=== PATIENT | female | born 1965 | race Caucasian/White ===

== ENCOUNTER 2025-02-02 13:36 | Emergency (ER) | payer MEDICAID ==
[~2025-02-02] VITALS: Ht 172.7 cm; Wt 98.1 kg
[2025-02-02 15:04] VITALS: BP 178/91
== END 2025-02-02 15:05 | disposition home or self-care (01) ==
LOC: ED 13:36
DX: J06.9 Acute upper respiratory infection, unspecified (principal); Z88.2 Allergy status to sulfonamides
CPT/HCPCS: 99283

== ENCOUNTER 2025-02-24 13:57 | Emergency (ER) | payer MEDICAID ==
[~2025-02-24] VITALS: Ht 170.2 cm; Wt 100.0 kg
--- OUTSIDE RECORDS SUMMARY | 2025-02-24 14:03 | XMS ---
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 Trevon has no Care Guidelines for this patient. Yasmine VISIT COUNT (12 MO.) 2 [facility] [place] TOTAL 2 NOTE: Visits indicate total known visits. [place] [place] (12 MO.) 02/24/2025 13:[address] [facility] [address] [place] TYPE: Emergency COMPLAINT: - FATIGUE 02/02/2025 13:37 [facility] [place] TYPE: Emergency COMPLAINT: - COLD SYMPTOMS DIAGNOSES: - Acute upper respiratory infection, unspecified - Allergy status to sulfonamides INPATIENT VISIT TRACKING (12 MO.) No inpatient visits to display in this time frame [email or web address]
[2025-02-24] MEDS ORDERED: TRAZODONE HCL50 MG PO ×2 (14:15→15:55)
[2025-02-24] MEDS ORDERED: LIPITOR40 MG PO ×2 (14:16→15:55)
[2025-02-24] MEDS ORDERED: COREG3.125 MG PO (14:16)
[2025-02-24] MEDS ORDERED: OMEPRAZOLE20 MG PO ×2 (14:17→15:55)
[2025-02-24] MEDS ORDERED: FUROSEMIDE20 MG PO (14:17)
[2025-02-24] MEDS ORDERED: COZAAR50 MG PO ×2 (14:17→15:55)
[2025-02-24] MEDS ORDERED: SUBOXONE 8 MG-1 EAC1 SL (15:55)
[2025-02-24] MEDS ORDERED: CARVEDILOL3.125 MG PO (15:55)
[2025-02-24] MEDS ORDERED: POTASSIUM CHLO20 ME2 PO (15:55)
[2025-02-24] MEDS ORDERED: LASIX20 MG PO (15:55)
[2025-02-24 16:00] VITALS: BP 161/68
== END 2025-02-24 16:00 | disposition home or self-care (01) ==
LOC: ED 13:57
DX: G89.29 Other chronic pain (principal); Z76.0 Encounter for issue of repeat prescription; E10.9 Type 1 diabetes mellitus without complications; I10 Essential (primary) hypertension; E78.5 Hyperlipidemia, unspecified; Z79.899 Other long term (current) drug therapy; Z88.2 Allergy status to sulfonamides
CPT/HCPCS: 99281

== ENCOUNTER 2025-07-06 08:27 | Emergency (ER) | payer OTHER ==
[~2025-07-06] VITALS: Ht 170.2 cm; Wt 115.3 kg
[~2025-07-06 08:27] MED LIST: CARVEDILOL3.125 MG PO; COREG3.125 MG PO; COZAAR50 MG PO; FUROSEMIDE20 MG PO; LASIX20 MG PO; LIPITOR40 MG PO; OMEPRAZOLE20 MG PO; POTASSIUM CHLO20 ME2 PO; SUBOXONE 8 MG-1 EAC1 SL; TRAZODONE HCL50 MG PO
[2025-07-06] MEDS ORDERED: ALBUTEROL/IPRATROPIUM 3 ML NEB INH ONE ×2 (09:00→09:30)
[2025-07-06 09:29] LABS: BASOPHILS 0.4 % (0.1-1.2); EOSINOPHILS 0.7 % (0.7-5.8); LYMPHOCYTES 9.9 % (19.3-51.7); MCH 34.3 PG (25.6-32.2); MCHC 32.6 g/dL (32.2-35.5); MCV 105.4 fL (79.4-94.8); MONOCYTES 5.7 % (4.7-12.5); NEUTROPHILS 83.0 % (34.0-71.1); RBC 3.35 M/uL (3.93-5.22)
[2025-07-06 09:53] LABS: ALT (SGPT) 53.0 U/L (14-59); AST (SGOT) 37.0 U/L (15-37); GLOMERULAR FILTRATION RATE,EST 61.0 mL/min (>60); PROTEIN, TOTAL 7.2 g/dL (6.4-8.2); UREA NITROGEN 16.0 mg/dL (7-18)
[2025-07-06] MEDS ORDERED: GABAPENTIN300 MG PO (10:09)
[2025-07-06] MEDS ORDERED: INSULIN LI100 UNIT/2 SUB-Q (10:09)
[2025-07-06] MEDS ORDERED: ASPIRIN 81 MG CHEW PO ONE (11:15)
[2025-07-06] MEDS ORDERED: FUROSEMIDE 40 MG/4 ML VIAL IV ONE (11:45)
[2025-07-06 13:37] VITALS: BP 138/78
--- NOTE | 2025-07-07 07:26 | EKG ---
[facility] [address] [place], [place] [address] Signed Normal sinus rhythm Nonspecific ST abnormality Abnormal ECG No previous ECGs available Confirmed by JAG SANTOS MD ([id number]) on 07/07/2025 7:26:36 AM Electronically Signed By: JAG SANTOS 07/07/25 0726 PATIENT NAME: SONIA LUJAN CARLITO Electrocardiogram DATE OF : 67 PHYSICIAN: JAG SANTOS REPORT #: [id number] REPORT IS CONFIDENTIAL AND NOT TO BE RELEASED WITHOUT AUTHORIZATION
== END 2025-07-06 13:37 | disposition short-term general hospital (02) ==
LOC: ED 08:27
PROVIDERS: Emergency Medicine
DX: I11.0 Hypertensive heart disease with heart failure (principal); I50.9 Heart failure, unspecified; I25.10 Atherosclerotic heart disease of native coronary artery without angina pectoris; E10.9 Type 1 diabetes mellitus without complications; E78.5 Hyperlipidemia, unspecified; Z88.2 Allergy status to sulfonamides; Z79.899 Other long term (current) drug therapy; Z79.4 Long term (current) use of insulin
CPT/HCPCS: 36415; 71045; 80053; 83880; 84484; 85025; 93005; 93010; 94640; 96374; 99285-25; A9270; J1938